=== PATIENT | male | born 1990 | race Caucasian/White ===

== ENCOUNTER 2025-01-05 11:55 | Emergency (ER) | payer BC, SELFPAY ==
[2025-01-05 11:56] VITALS: BMI 23.6
[2025-01-05 12:11] VITALS: BP 135/92; PULSE 90; RESP 18; TEMP 37; O2SAT 98
--- NOTE | 2025-01-05 12:36 | EKG_ITS ---
[facility] Test Date: 2025-01-05 Pat Name: ANG RENEE Department: Room: - Gender: Male Administrative Services Specialist: : [id number] Requested By: Selena Lacy Order Number: [id number] Reading MD: Selena Lacy Measurements Intervals [place] Rate: 76 P: 38 OK: 117 QRS: 82 QRSD: 83 T: 68 QT: 363 QTc: 410 Interpretive Statements SINUS RHYTHM WITH SHORT OK INTERVAL ST ELEVATION, PROBABLY EARLY REPOLARIZATION [ST ELEVATION WITH NORMALLY INFLECTED T-WAVE] MINIMAL ST DEPRESSION [0.025+ mV ST DEPRESSION] No previous ECG available for comparison /store/S0/[id number].pdf
--- NOTE | 2025-01-05 12:36 | XR_ITS ---
Examination: Abdomen sonogram, Limited Date and time of exam: January 05, 2025, 1305 hrs. Indications: Epigastric pressure beginning 3 days ago. Technique: Real-time gilbert scale transabdominal sonographic images of the upper abdomen obtained. Findings: Normal gallbladder. Normal common bile duct 0.3 cm Pancreatic head 2.4 cm Liver 16.7 cm no focal liver lesions Normal hepatopedal portal venous oh Patent IVC Impression: Mild to moderate hepatomegaly
--- NOTE | 2025-01-05 12:37 | PD.EDABDPN ---
ED Abdominal Pain RME/HPI General Chief Complaint: Abdominal Pain Stated complaint: ABD PAIN/PRESSURE x 3 DAYS Time seen by provider: 01/05/25 12:01 Arrival date/time: 01/05/25 11:55 RME / HPI RME / HPI narrative: 34-year-old male patient with no significant past medical history, came in for evaluation regarding epigastric pain. Onset of symptoms for the last several days as epigastric pain, described as dull ache, severity moderate. Patient denies any vomiting. Denies any fever. Denies any diarrhea or constipation. Denies any other complaints no medications taken prior travel. Related Data Previous Rx's ?Medication ?Instructions ?Recorded pantoprazole 40 mg tablet,delayed 40 mg PO QDAY #30 tabs 01/05/25 release (Protonix) Allergies Allergy/AdvReac Type Severity Reaction Status Date / Time Penicillins AdvReac Severe Rash Verified 01/05/25 11:58 Review of Systems Review of Systems Narrative Review of Systems: Review of system reviewed and within normal limits except mentioned in HPI ED Exam Narrative Physical exam: VITAL SIGNS: Reviewed. GENERAL APPEARANCE: Alert and interactive, follows commands, no acute distress, HEAD AND FACE: Non-traumatic. ENT: PERRL, pink conjunctivitis, eyelid no trauma, Mucous membrane moist. NECK: Supple, nontender, no nuchal rigidity. CHEST: No tenderness, no crepitus, no paradoxical movement, no retractions. LUNGS: Clear, well ventilated, symmetric, no rales, no wheezing, no ronchi, no stridor, good breath sounds bilaterally. HEART: Regular rate, regular rhythm, no murmur, no gallops. ABDOMEN: Soft, positive bowel sounds, nondistended, no guarding, epigastric tenderness no rebound, no masses, RECTAL: Deferred. GENITAL: Deferred. NEUROLOGICAL: Gross motor function intact sensory function intact, Appropriate for age. MUSCULOSKELETAL: low back nontender, full range of motion. EXTREMITIES: Nontender, full range of motion. SKIN: Color pink, dry, no rash, no lacerations, no abrasions, no contusions. LYMPHATICS: Deferred. Course Quality Measures none Orders Category Date Time Status EKG (ED ONLY) *Do not use* NOW Care 01/05/25 12:36 Completed EKG (ED Only) Stat Exams 01/05/25 12:36 Draft US gall bladder Stat Exams 01/05/25 12:36 Taken CBC Stat Lab 01/05/25 12:54 Completed Comprehensive Metabolic Panel Stat Lab 01/05/25 12:54 Completed Lipase Stat Lab 01/05/25 12:54 Completed Prothrombin Time with INR Stat Lab 01/05/25 12:54 Completed UA, C/S IF [Urinalysis, C/S if Indicated] Stat Lab 01/05/25 13:00 Completed mg Hyd/Al Hyd/Luan Susp [Maalox Susp] Med 01/05/25 12:35 Discontinued 30 ml PO X1 ONE Vital Signs Vital signs: Vital Signs Temperature 98.6 F 01/05/25 12:11 Pulse Rate 90 01/05/25 12:11 Respiratory Rate 18 01/05/25 12:11 Blood Pressure 135/92 H 01/05/25 12:11 Pulse Oximetry (%) 98 01/05/25 12:11 Oxygen Delivery Method Room Air 01/05/25 12:11 Abdominal Pain MDM MDM Narrative MDM Narrative:: 34-year-old male patient with no significant past medical history, came in for evaluation regarding epigastric pain. Onset of symptoms for the last several days as epigastric pain, described as dull ache, severity moderate. Patient denies any vomiting. Denies any fever. Denies any diarrhea or constipation. Denies any other complaints no medications taken prior travel. Patient's workup today all came back normal, LFTs are normal total bili is normal, ultrasound of the gallbladder also came back unremarkable. CBC no leukocytosis noted. Patient's provide significant improvement of symptoms after patient received Maalox. Patient was advised to follow-up with PCP and as per referral to GI specialist for outpatient endoscopy to rule out other pathology other than gastritis. Patient agrees with the plan Patient data External records reviewed:: None Clinical information provided by:: patient Social determinants that could affect healthcare access:: none Patient has the following chronic illnesses:: None How is presenting disease/condition affected by chronic disease/condition?: no chronic disease Evaluation data The following diagnostics were reviewed and interpreted by me:: lab results and radiology exam(s) Lab and/or radiology exams considered but not ordered:: None Interpretation Summary: See results MDM Medications / Prescriptions Medications or Prescriptions considered but not ordered:: None Medication administrations:: Medication Administration History Discontinued Medications Al Hydrox/Mg Hydrox/Simethicone (Mg Hyd/Al Hyd/Luan (Maalox Reg) Susp 30 Ml Udc) 30 ml PO X1 ONE Stop: 01/05/25 12:36 Last Admin: 01/05/25 12:46 Dose: 30 ml Documented By: Maalox Consultations Consultation(s) initiated? (list below): No Diagnosis Differential diagnosis abdominal pain: abdominal pain, gastroenteritis and pancreatitis Most likely diagnosis given after review of the tests above:: Gastritis Admission Indicated Admission indicated?: not indicated Admission Request Was there a request for admission?: No Disposition Plan Disposition Plan: Discharge Discharge Attestation Discharge Attestation: The patient and all family members were given an opportunity to ask questions and understood the discharge instructions. Discharge instructions specifically effects, indications for sooner follow up or return to the emergency department, and the expected course of current diagnosis. Patient condition: Stable Discharge Plan Plan Patient Disposition: HOME (Self Care) Discharge Disposition comment: Stable Prescriptions/Referrals Prescriptions/Med Rec: New pantoprazole [Protonix] 40 mg tablet,delayed release (DR/EC) 40 mg PO QDAY Qty: 30 0RF Referrals: Sulaiman Vidal MD [Primary Care Provider] - In 1 week Problem List Clinical Impression: Gastritis Patient/Caregiver Discharge Instructions Discharge Activity: activity as tolerated Education Materials: Treating Gastritis Additional Instructions: Thank you for the opportunity for serving you today. You are stable for discharged . You are advised to: Follow-up with your PCP in 1 to 2 days as your PCP to refer you to a solar energy sales specialist for outpatient endoscopy Return to ED for worsening of symptoms Increase oral fluids Take medication as prescribed Please avoid triggers of gastritis like drinking coffee, drinking soda, drinking beer, eating hot and spicy food Print Language: Chadian Stand Alone Forms: Kelin Award Info., Patient Portal Info Letter PA/STOVE POLISHER Supervising Physician PA/STOVE POLISHER Supervising Physician: MD jared
[2025-01-05] MEDS: MG HYD/AL HYD/SIME (Maalox Reg) SUSP 30 ML UDC PO (12:46)
[2025-01-05 13:14] LABS: Basophils # (Auto) 0.0 Thou/mm3 (0.0-0.2); Basophils % (Auto) 0 % (0-2.5); Eosinophils # (Auto) 0.1 Thou/mm3 (0.0-0.5); Eosinophils % (Auto) 1 % (0-10); Hematocrit 44.2 % (41.0-53.0); Hemoglobin 15.7 g/dL (13.5-16.0); Immature Granulocytes Auto 0.08 Thou/mm3 (0.00-0.00); Lymphocytes # (Auto) 1.6 Thou/mm3 (1.0-4.8); Lymphocytes % (Auto) 18 % (10-50); Mean Corpuscular HGB Conc 35.5 g/dl (31.0-37.0); Mean Corpuscular Hemoglobin 30.5 pg (25.0-35.0); Mean Corpuscular Volume 86 fL (80-100); Monocytes # (Auto) 1.1 Thou/mm3 (0.0-0.8); Monocytes % (Auto) 12 % (0-12); Neutrophils # (Auto) 6.3 Thou/mm3 (1.8-7.7); Neutrophils % (Auto) 68 % (37-80); Nucleated Red Blood Cell # 0.00 Thou/mm3 (0.00-0.00); Nucleated Red Blood Cell % 0 /100 WBC (0); Platelet Count 226 Thou/mm3 (140-440); RDW Standard Deviation 36.5 fL (35.1-43.9); Red Blood Count 5.15 Miln/mm3 (4.50-5.90); White Blood Count 9.2 Thou/mm3 (3.8-10.6)
[2025-01-05 13:15] LABS: INR 1.1 (0.9-1.3); Prothrombin Time 11.9 Seconds (9.0-12.2)
[2025-01-05 13:19] LABS: Alanine Aminotransferase 31 U/L (10-49); Albumin, Serum 4.9 gm/dL (3.5-5.0); Albumin/Globulin Ratio 1.8 (1.2-2.2); Alkaline Phosphatase 88 U/L (46-116); Anion Gap 9 (7-16); Aspartate Amino Transferase 23 U/L (0-34); BUN/Creatinine Ratio 12 Ratio (12-20); Bilirubin,Total 1.1 mg/dL (0.3-1.2); Blood Urea Nitrogen 13 mg/dL (9-23); Calcium 9.8 mg/dL (8.3-10.6); Calcium (Corrected) 9.8 mg/dL (8.5-10.1); Carbon Dioxide 25.6 mMol/L (20.0-31.0); Chloride 104 mMol/L (98-107); Creatinine (Component) 1.1 mg/dL (0.6-1.3); Estimated Creatinine Clearance 96.4 mL/min (>60); Globulin 2.8 gm/dL (2.3-3.5); Glucose 95 mg/dL (74-106); Lipase 24 U/L (12-53); Osmolality,Calculated 277 (275-295); Potassium 4.6 mMol/L (3.4-5.1); Sodium 139 mMol/L (136-145); Total Protein 7.7 gm/dL (5.7-8.2); eGFR > 60 See Note
[2025-01-05 13:26] LABS: Collection Type, Urine Clean Catch; Squamous Epithelial Cell,Urine 0 /hpf (0-5)
[2025-01-05 13:43] LABS: Bilirubin,Urine Negative (Negative); Blood,Urine Negative (Negative); Clarity,Urine Clear (Clear/Hazy); Color,Urine Yellow (Lt Yel-Yel); Culture Indicated,Urine Not Indicated; Glucose, Urine Negative (Negative); Hyaline Casts,Urine < 1 /hpf (0-1); Ketones,Urine 1+ (Negative); Leukocyte Esterase,Urine Negative (Negative); Nitrite,Urine Negative (Negative); PH,Urine 5.5 (5.0-7.0); Protein,Urine Negative (Neg - Trace); RBC,Urine 1 /hpf (0-3); Specific Gravity,Urine 1.030 (1.001-1.035); Urobilinogen,Urine Negative mg/dL (0.0-1.0); WBC,Urine 1 /hpf (0-5)
[2025-01-05] MEDS: PANTOPRAZOLE 40 MG TABLET PO (15:01)
== END 2025-01-05 15:08 | disposition home or self-care (01) ==
PROVIDERS: Nurse Practitioner Family; Emergency Provider Emergency Medicine; PCP Internal Medicine
DX: K29.70 Gastritis, unspecified, without bleeding (principal); R94.31 Abnormal electrocardiogram [ECG] [EKG]
CPT/HCPCS: 36415; 76705; 80053; 81001; 83690; 85025; 85610; 93005; 99283; A9270